=== PATIENT | female | born 1940 | race Native Hawaiian/Other Pacific Islander ===

== ENCOUNTER 2019-08-04 10:53 | Outpatient (CLI) | payer OTHER ==
[2019-08-04 11:29] LABS: POTASSIUM 4.4 mmol/L (3.6-5.2)
== END 2019-08-04 19:22 | disposition home or self-care (01) ==
LOC: LAB 10:53
PROVIDERS: Internal Medicine
DX: E11.9 Type 2 diabetes mellitus without complications (principal); E78.49 Other hyperlipidemia; Z86.73 Personal history of transient ischemic attack (TIA), and cerebral infarction without residual deficits; E03.8 Other specified hypothyroidism; E78.5 Hyperlipidemia, unspecified; I63.9 Cerebral infarction, unspecified; E03.9 Hypothyroidism, unspecified; R31.9 Hematuria, unspecified
CPT/HCPCS: 80053; 80061; 84443

== ENCOUNTER 2019-11-09 11:15 | Outpatient (CLI) | payer OTHER | END 2019-11-09 21:50 | disposition home or self-care (01) | LOC: LAB 11:15 | DX: R30.0 Dysuria (principal) | CPT/HCPCS: 81000; 87077; 87086; 87088; 87186 ==

== ENCOUNTER 2019-11-22 13:51 | Outpatient (CLI) | payer OTHER | END 2019-11-22 20:17 | disposition home or self-care (01) | LOC: LAB 13:51 | DX: N39.0 Urinary tract infection, site not specified (principal) | CPT/HCPCS: 81000 ==